=== PATIENT | female | born 1985 | race Caucasian/White ===

== ENCOUNTER 2018-05-06 19:35 | Emergency (ER) | payer OTHER, MEDICAID ==
[2018-05-06] MEDS: IBUPROFEN 600 MG TAB PO (20:08)
[2018-05-06] MEDS: CEPHALEXIN 500 MG CAP PO (20:08)
== END 2018-05-06 20:41 | disposition home or self-care (01) ==
LOC: FTE 19:35
DX: K08.89 Other specified disorders of teeth and supporting structures (principal)
CPT/HCPCS: 99283; Z7502

== ENCOUNTER 2019-06-16 11:15 | Emergency (ER) | payer OTHER ==
[2019-06-16 12:47] LABS: TROPONIN-I < 0.012 ng/ml (0.000-0.120)
== END 2019-06-16 13:47 | disposition home or self-care (01) ==
LOC: FTE 11:15
DX: R06.02 Shortness of breath (principal); F17.210 Nicotine dependence, cigarettes, uncomplicated
CPT/HCPCS: 71045; 81025; 84484; 93005; 99284-25